=== PATIENT | male | born 1965 | race Hispanic/Latino ===

== ENCOUNTER 2018-12-18 01:57 | Observation (INO) | payer OTHER ==
--- NOTE | 2018-12-18 02:18 | ED PDOC ---
Arrival/HPI - General Chief Complaint: Syncope Time Seen by Provider: 12/18/18 02:08 Historian: Patient, EMS - History of Present Illness Narrative History of Present Illness (Text): 12/18/18 02:13 Tavo Stewart is a 53 year old male, with no significant past medical history, who presents to the ED brought in by EMS status post syncopal episode prior to arrival. Patient states he was sitting at a bar this evening when he lost consciousness. Patient states he is unable to recall the incident and only remembers waking up. Patient states he was drinking alcohol prior to the episode. Patient denies any fever, chills, chest pain, shortness of breath, nausea, vomiting, diarrhea, urinary symptoms, back pain, neck pain, headache, dizziness, or any other complaints. Time/Duration: Prior to Arrival Symptom Onset: Sudden Symptom Course: Unchanged Activities at Onset: Light Past Medical History - Provider Review Nursing Documentation Reviewed: Yes - Infectious Disease Hx of Infectious Diseases: None - Cardiac Hx Cardiac Disorders: No - Pulmonary Hx Respiratory Disorders: No - Neurological Hx Neurological Disorder: No - HEENT Hx HEENT Disorder: No - Renal Hx Renal Disorder: No - Endocrine/Metabolic Hx Endocrine Disorders: No - Hematological/Oncological Hx Blood Disorders: No - Integumentary Hx Dermatological Disorder: No - Musculoskeletal/Rheumatological Hx Musculoskeletal Disorders: No - Gastrointestinal Hx Gastrointestinal Disorders: No - Genitourinary/Gynecological Hx Genitourinary Disorders: No - Psychiatric Hx Psychophysiologic Disorder: No Hx Substance Use: No - Anesthesia Hx Anesthesia: No Family/Social History - Physician Review Nursing Documentation Reviewed: Yes Family/Social History: No Known Family HX Smoking Status: Never Smoked Hx Alcohol Use: Yes Frequency of alcohol use: Socially Hx Substance Use: No Allergies/Home Meds Allergies/Adverse Reactions: Allergies No Known Allergies Allergy (Verified 12/18/18 02:03) Home Medications: Home Meds Medication Instructions Recorded Confirmed No Known Home Med 12/18/18 12/18/18 Review of Systems - Physician Review All systems were reviewed & negative as marked: Yes - Review of Systems Constitutional: Normal. absent: Fevers Eyes: Normal ENT: Normal Respiratory: Normal. absent: SOB, Cough Cardiovascular: Syncope. absent: Chest Pain Gastrointestinal: Normal. absent: Abdominal Pain, Diarrhea, Nausea, Vomiting Genitourinary Male: Normal. absent: Dysuria, Frequency, Hematuria, Urinary Output Changes Musculoskeletal: Normal. absent: Back Pain, Neck Pain Skin: Normal. absent: Rash Neurological: Normal. absent: Headache, Dizziness Endocrine: Normal Hemo/Lymphatic: Normal Psychiatric: Normal Physical Exam Vital Signs Reviewed: Yes Vital Signs Temp Pulse Resp BP Pulse Ox 12/18/18 02:03 98.2 F 76 18 144/92 H 94 L Temperature: Afebrile Blood Pressure: Normal Pulse: Regular Respiratory Rate: Normal Appearance: Positive for: Well-Appearing, Non-Toxic, Comfortable Pain Distress: None Mental Status: Positive for: Alert and Oriented X 3 Finger Stick Blood Glucose: 124 - Systems Exam Head: Present: Atraumatic, Normocephalic Pupils: Present: PERRL Extroacular Muscles: Present: EOMI Conjunctiva: Present: Normal Ears: Present: NORMAL TM Mouth: Present: Moist Mucous Membranes Pharnyx: Present: Normal Neck: Present: Normal Range of Motion. No: Meningeal Signs, MIDLINE TENDERNESS, Paraspinal Tenderness Respiratory/Chest: Present: Clear to Auscultation, Good Air Exchange. No: Respiratory Distress, Accessory Muscle Use Cardiovascular: Present: Regular Rate and Rhythm, Normal S1, S2. No: Murmurs Abdomen: No: Tenderness, Distention, Peritoneal Signs Back: Present: Normal Inspection Upper Extremity: Present: Normal Inspection. No: Cyanosis, Edema Lower Extremity: Present: Normal Inspection. No: Edema Neurological: Present: GCS=15, CN II-XII Intact, Speech Normal, Motor Func Grossly Intact, Normal Sensory Function, Normal Cerebellar Funct Skin: Present: Warm, Dry, Normal Color. No: Rashes Psychiatric: Present: Alert, Oriented x 3, Normal Insight, Normal Concentration Medical Decision Making ED Course and Treatment: 12/18/18 02:13 Impression: 53 year old male presents status post syncopal episode. Plan: -- CT Head w/o contrast -- EKG -- Chest X-ray -- Labs, cardiac enzymes, alcohol level -- Reassess and disposition Progress Notes: Reviewed EKG, NSR at [address]-segment elevations or depressions, no T-wave inversions, normal intervals. 12/18/18 03:23 Reviewed radiology, Chest X-ray shows no acute processes. CT Head: Findings: The ventricles and sulci are symmetric bilaterally. There is no evidence of acute hemorrhage or infarct. There is no midline shift, mass effect, or extra-axial fluid collection. The osseous structures are unremarkable. The visualized paranasal sinuses and mastoid air cells are clear. Impression: Negative study. Electronically signed on Dec 18, 2018 3:22:27 AM EDT by: Hector Brambila M.D., M.B.A., Certified By [employer] Trained MRI and CT Specialist 12/18/18 03:26 Case discussed with medical technologist hematology manager aviation, who is aware and agrees with plan. 12/18/18 03:[address] Cruz, who is aware and agrees with plan. Accepts pt in to hospitalist service. Pt will go to Telemetry observation for syncope. - EKG Interpretation Interpreted by ED Physician: Yes Type: 12 lead EKG - Scribe Statement The provider has reviewed the documentation as recorded by the Roniibluis manuel Garibay Provider Scribe Attestation: All medical record entries made by the Scribe were at my direction and personally dictated by me. I have reviewed the chart and agree that the record accurately reflects my personal performance of the history, physical exam, medical decision making, and the department course for this patient. I have also personally directed, reviewed, and agree with the discharge instructions and disposition. Disposition/Present on Arrival - Present on Arrival Any Indicators Present on Arrival: No History of DVT/PE: No History of Uncontrolled Diabetes: No Urinary Catheter: No History of Decub. Ulcer: No History Surgical Site Infection Following: None - Disposition Have Diagnosis and Disposition been Completed?: Yes Diagnosis: Syncope Disposition: HOSPITALIZED Disposition Time: 03:37 Patient Plan: Observation Patient Problems: Current Active Problems Problem Status Onset Syncope Acute Condition: STABLE
[2018-12-18 02:25] LABS: HEMOGLOBIN 13.9 g/dL (14.0-18.0); MEAN CORPUSCULAR HEMOGLOBIN 29.7 pg (25.0-35.0); MEAN PLATELET VOLUME 8.9 fl (7.0-11.0); RBC 4.68 10^6/uL (3.5-6.1); RED CELL DISTRIBUTION WIDTH 13.5 % (11.5-14.5); WHITE BLOOD COUNT 8.8 10^3/uL (4.5-11.0)
[2018-12-18 02:33] LABS: INR 1.02; PARTIAL THROMBOPLASTIN TIME 27.7 Seconds (26.9-38.3); PROTHROMBIN TIME 11.3 SECONDS (9.4-12.5)
[2018-12-18 02:44] LABS: ALB/GLOB RATIO 1.3 (1.1-1.8); ALBUMIN 4.5 g/dL (3.0-4.8); ALT/SGPT 75 U/L (7-56); AST/SGOT 54 U/L (17-59); BLOOD UREA NITROGEN 14 mg/dL (7-21); CALCIUM 9.4 mg/dL (8.4-10.5); GFR NON-AFRICAN AMERICAN > 60
[2018-12-18 02:55] LABS: TROPONIN I < 0.01 ng/mL
--- NOTE | 2018-12-18 04:06 | CP.PCM.HP ---
<Bud Haines - Last Filed: 12/18/18 03:43> History of Present Illness - History of Present Illness History of Present Illness: PGY1 Medicine History and Physical Exam Note for Dr. Cruz This is a 53-year-old M with no significant PMH who presents to the ED brought in by EMS status post syncopal episode prior to arrival. Patient states he was sitting at a bar and after having 3 beers, he lost consciousness. Patient states he is unable to recall the incident and only remembers waking up. Patient denies any symptoms prior to incident. Patient otherwise denies any headache, head trauma, fever, chills, nause, vomiting, chest pain, shortness of breath, diarrhe a, dysuria, back pain, and/or weakness in extremities. Of note, CODE STROKE was called in the ED mid-way during evaluation of the Patient, as he complained of right-sided facial, hand, and medial thigh numbness later during the physical examination portion of the encounter. PMH: Patient denies PSH: Patient denies Social Hx: ETOH socially (was drinking 3 beers tonight prior to arrival); denies tobacco, denies recreational drugs Family Hx: Patient denies Meds: Patient denies Allergies: NKDA PMD: Anjelica Mcpherson Present on Admission - Present on Admission Any Indicators Present on Admission: No History of DVT/PE: No History of Uncontrolled Diabetes: No Urinary Catheter: No Decubitus Ulcer Present: No Review of Systems - Review of Systems All systems: reviewed and no additional remarkable complaints except (as stated in HPI) Past Patient History - Infectious Disease Hx of Infectious Diseases: None - Past Social History Smoking Status: Never Smoked - CARDIAC Hx Cardiac Disorders: No - PULMONARY Hx Respiratory Disorders: No - NEUROLOGICAL Hx Neurological Disorder: No - HEENT Hx HEENT Problems: No - RENAL Hx Chronic Kidney Disease: No - ENDOCRINE/METABOLIC Hx Endocrine Disorders: No - HEMATOLOGICAL/ONCOLOGICAL Hx Blood Disorders: No - INTEGUMENTARY Hx Dermatological Problems: No - MUSCULOSKELETAL/RHEUMATOLOGICAL Hx Musculoskeletal Disorders: No - GASTROINTESTINAL Hx Gastrointestinal Disorders: No - GENITOURINARY/GYNECOLOGICAL Hx Genitourinary Disorders: No - PSYCHIATRIC Hx Psychophysiologic Disorder: No Hx Substance Use: No - SURGICAL HISTORY Hx Surgeries: No - ANESTHESIA Hx Anesthesia: No Meds Allergies/Adverse Reactions: Allergies Allergy/AdvReac Type Severity Reaction Status Date / Time No Known Allergies Allergy Verified 12/18/18 02:03 Physical Exam - Constitutional Appears: Non-toxic, No Acute Distress - Head Exam Head Exam: ATRAUMATIC, NORMAL INSPECTION, NORMOCEPHALIC - Eye Exam Eye Exam: EOMI, Normal appearance, PERRL Pupil Exam: NORMAL ACCOMODATION - ENT Exam ENT Exam: Mucous Membranes Moist, Normal Exam - Neck Exam Neck exam: Positive for: Normal Inspection - Respiratory Exam Respiratory Exam: Clear to Auscultation Bilateral, NORMAL BREATHING PATTERN. absent: Respiratory Distress - Cardiovascular Exam Cardiovascular Exam: REGULAR RHYTHM, +S1, +S2 - GI/Abdominal Exam GI & Abdominal Exam: Normal Bowel Sounds, Soft. absent: Tenderness - Extremities Exam Extremities exam: Positive for: full ROM, normal capillary refill, normal inspection, pedal pulses present. Negative for: joint swelling, tenderness - Neurological Exam Neurological exam: Alert, CN II-XII Intact, Oriented x3 Additional comments: no pronator drift cerebellar function in tact bilaterally CN II-XII in tact Gross sensation decreased in R side face, arm, and medial thigh no LE drift bilaterally - Psychiatric Exam Psychiatric exam: Normal Affect, Normal Mood - Skin Skin Exam: Dry, Intact, Normal Color, Warm Results - Vital Signs Recent Vital Signs: Last Vital Signs Temp 98.2 F 12/18/18 02:03 Pulse 76 12/18/18 02:03 Resp 18 12/18/18 02:03 BP 144/92 H 12/18/18 02:03 Pulse Ox 94 L 12/18/18 02:03 - Labs Result Diagrams: 12/18/18 02:12 12/18/18 02:12 Labs: Laboratory Results - last 24 hr 12/18/18 12/18/18 12/18/18 02:12 02:12 02:12 WBC 8.8 RBC 4.68 Hgb 13.9 L Hct 42.1 MCV 90.0 MCH 29.7 MCHC 33.0 RDW 13.5 Plt Count 325 MPV 8.9 PT 11.3 INR 1.02 APTT 27.7 Sodium 141 Potassium 3.9 Chloride 106 Carbon Dioxide 26 Anion Gap 14 BUN 14 Creatinine 0.9 Est GFR ( Amer) > 60 Est GFR (Non-Af Amer) > 60 Random Glucose 125 H Calcium 9.4 Total Bilirubin 0.3 AST 54 ALT 75 H Alkaline Phosphatase 61 Lactate Dehydrogenase 497 Total Creatine Kinase 154 Troponin I < 0.01 Total Protein 8.0 Albumin 4.5 Globulin 3.5 Albumin/Globulin Ratio 1.3 Alcohol, Quantitative 12/18/18 02:12 WBC RBC Hgb Hct MCV MCH MCHC RDW Plt Count MPV PT INR APTT Sodium Potassium Chloride Carbon Dioxide Anion Gap BUN Creatinine Est GFR ( Amer) Est GFR (Non-Af Amer) Random Glucose Calcium Total Bilirubin AST ALT Alkaline Phosphatase Lactate Dehydrogenase Total Creatine Kinase Troponin I Total Protein Albumin Globulin Albumin/Globulin Ratio Alcohol, Quantitative 36 H Assessment & Plan - Assessment and Plan (Free Text) Assessment: Right Facial, R Upper Extremity, and R Thigh numbness - CODE STROKE called in ED; NIHSS score 1 at baseline - Neurology consulted; Dr. Rolon - CT head without contrast per prelim report: no evidence of acute hemorrhage or infarct - F/U ECHO - F/U RPR, TSH, CMP, Mg, Phos, Vitamin B12, Folate, Vitamin E levels - F/U UDS - F/U serial troponin - Neuro checks Q4H - ASA 325mg PO administered in ED - ASA 81mg PO daily - Lipitor 40mg administered in ED - Folic acid, Vitamin B12, and Multivitamin - Fall risk precautions - Seizure precautions - PT/OT eval and treat Pre-Syncope - Cardiology consulted - Dr. Howard recommendations appreciated - CT head without contrast: per prelim report: no evidence of acute hemorrhage or infarct - EKG reviewed: NSR @79bpm; no ST elevation; no T-wave inversions - CXR reviewed: no acute disease processes - F/U ECHO - Troponin negative x1 - F/U Serial troponin - F/U RPR, TSH, CMP, Mg, Phos, Vitamin B12, Folate, Vitamin E levels - Continue ASA 81mg PO daily - Continue home Continue lipitor 40 mg PO daily - Monitor orthostatic vitals - Low sodium diet - Monitor in tele ETOH Intoxication - High ETOH levels - Pending UDS - CIWA - Ativan 1mg IVP Q6H PRN for withdrawal - Currently, no signs of withdrawal - Monitor Hyperglycemia - Accu checks ACHS - ISS - low - Hypoglycemia protocol - HHD Prophylaxis - GI: None indicated at this time - DVT: SCDs Discussed with Dr. Anthony Haines PGY1 NIHSS Scale ([place]) Time Performed: 04:01 - How Severe is the Stoke Baseline Level of Consciousness: 0=Alert LOC to Questions: 0=Both comments correct LOC to commands: 0=Obeys both correctly Best Gaze: 0=Normal Visual: 0=No visual loss Facial: 0=Normal Motor Arm - Left: 0=No drift Motor Arm - Right: 0=No drift Motor Leg - Left: 0=No drift Motor Leg - Right: 0=No drift Limb Ataxia: 0=Absent Sensory: 1=Mild to moderate loss Best Language: 0=No aphasia Dysarthia: 0=Normal articulation Extinction & Inattention (Neglect): 0=Normal, no object Score: 1 Risk Level: Minor Stroke Risk <Leslye Cruz - Last Filed: 12/18/18 06:13> Results - Vital Signs Recent Vital Signs: Last Vital Signs Temp 98.2 F 12/18/18 04:57 Pulse 77 12/18/18 04:57 Resp 18 12/18/18 05:37 BP 138/89 12/18/18 04:57 Pulse Ox 98 12/18/18 04:57 - Labs Result Diagrams: 12/18/18 04:45 12/18/18 04:45 Labs: Laboratory Results - last 24 hr 12/18/18 12/18/18 12/18/18 02:12 02:12 02:12 WBC 8.8 RBC 4.68 Hgb 13.9 L Hct 42.1 MCV 90.0 MCH 29.7 MCHC 33.0 RDW 13.5 Plt Count 325 MPV 8.9 Neut % (Auto) Lymph % (Auto) [place] % (Auto) Eos % (Auto) Baso % (Auto) Lymph # (Auto) [place] # (Auto) Eos # (Auto) Baso # (Auto) Absolute Neuts (auto) PT 11.3 INR 1.02 APTT 27.7 Sodium 141 Potassium 3.9 Chloride 106 Carbon Dioxide 26 Anion Gap 14 BUN 14 Creatinine 0.9 Est GFR ( Amer) > 60 Est GFR (Non-Af Amer) > 60 Random Glucose 125 H Calcium 9.4 Phosphorus Magnesium Total Bilirubin 0.3 AST 54 ALT 75 H Alkaline Phosphatase 61 Lactate Dehydrogenase 497 Total Creatine Kinase 154 Troponin I < 0.01 Total Protein 8.0 Albumin 4.5 Globulin 3.5 Albumin/Globulin Ratio 1.3 Triglycerides Cholesterol LDL Cholesterol Direct HDL Cholesterol Free T4 TSH 3rd Generation Urine Opiates Screen Urine Methadone Screen Ur Barbiturates Screen Ur Phencyclidine Scrn Ur Amphetamines Screen U Benzodiazepines Scrn U Oth Cocaine Metabols U Cannabinoids Screen Alcohol, Quantitative 12/18/18 12/18/18 12/18/18 02:12 04:45 04:45 WBC 9.3 RBC 4.66 Hgb 13.8 L Hct 42.2 MCV 90.6 MCH 29.6 MCHC 32.7 RDW 13.5 Plt Count 323 MPV 9.2 Neut % (Auto) 68.7 H Lymph % (Auto) 21.2 L [place] % (Auto) 8.0 H Eos % (Auto) 1.8 Baso % (Auto) 0.3 Lymph # (Auto) 2.0 [place] # (Auto) 0.8 H Eos # (Auto) 0.2 Baso # (Auto) 0.03 Absolute Neuts (auto) 6.41 PT INR APTT Sodium Potassium Chloride Carbon Dioxide Anion Gap BUN Creatinine Est GFR ( Amer) Est GFR (Non-Af Amer) Random Glucose Calcium Phosphorus Magnesium Total Bilirubin AST ALT Alkaline Phosphatase Lactate Dehydrogenase Total Creatine Kinase Troponin I Total Protein Albumin Globulin Albumin/Globulin Ratio Triglycerides Cholesterol LDL Cholesterol Direct HDL Cholesterol Free T4 TSH 3rd Generation Urine Opiates Screen Negative Urine Methadone Screen Negative Ur Barbiturates Screen Negative Ur Phencyclidine Scrn Positive H Ur Amphetamines Screen Negative U Benzodiazepines Scrn Negative U Oth Cocaine Metabols Positive H U Cannabinoids Screen Negative Alcohol, Quantitative 36 H 12/18/18 12/18/18 04:45 04:45 WBC RBC Hgb Hct MCV MCH MCHC RDW Plt Count MPV Neut % (Auto) Lymph % (Auto) [place] % (Auto) Eos % (Auto) Baso % (Auto) Lymph # (Auto) [place] # (Auto) Eos # (Auto) Baso # (Auto) Absolute Neuts (auto) PT INR APTT Sodium 142 Potassium 4.7 Chloride 103 Carbon Dioxide 30 Anion Gap 14 BUN 13 Creatinine 0.9 Est GFR ( Amer) > 60 Est GFR (Non-Af Amer) > 60 Random Glucose 109 Calcium 9.4 Phosphorus 2.7 Magnesium 2.3 H Total Bilirubin 0.3 AST 51 ALT 75 H Alkaline Phosphatase 63 Lactate Dehydrogenase Total Creatine Kinase Troponin I < 0.01 Total Protein 8.0 Albumin 4.5 Globulin 3.5 Albumin/Globulin Ratio 1.3 Triglycerides 216 H Cholesterol 251 H LDL Cholesterol Direct 144 H HDL Cholesterol 49 Free T4 0.79 TSH 3rd Generation 0.71 Urine Opiates Screen Urine Methadone Screen Ur Barbiturates Screen Ur Phencyclidine Scrn Ur Amphetamines Screen U Benzodiazepines Scrn U Oth Cocaine Metabols U Cannabinoids Screen Alcohol, Quantitative Attending/Attestation - Attestation I have personally seen and examined this patient.: Yes I have fully participated in the care of the patient.: Yes I have reviewed all pertinent clinical information: Yes Notes (Text): 12/18/18 06:13 Seen and examined. discussed with resident. A&P as above. Add MRI brain.
[2018-12-18] MEDS ORDERED: Aspirin 325 mg EC Tablets PO STA (04:22)
[2018-12-18] MEDS ORDERED: Folic Acid 1 MG, Thiamine 100 MG, Multivitamin (MVI) 10 ML in Dextrose 5% In Water 1,00... IV SCH (04:30)
[2018-12-18] MEDS ORDERED: Folic Acid 1 MG, Thiamine 100 MG, Multivitamin (MVI) 10 ML in Dextrose 5% In Water 1,00... IV ONE (04:43)
[2018-12-18 05:24] LABS: BLOOD UREA NITROGEN 13 mg/dL (7-21); CALCIUM 9.4 mg/dL (8.4-10.5); GFR NON-AFRICAN AMERICAN > 60
[2018-12-18 05:25] LABS: ALB/GLOB RATIO 1.3 (1.1-1.8); ALBUMIN 4.5 g/dL (3.0-4.8); ALT/SGPT 75 U/L (7-56); AST/SGOT 51 U/L (17-59); HDL CHOLESTEROL 49 mg/dL (29-60); LDL CHOLESTEROL 144 mg/dL (0-129)
[2018-12-18 05:28] LABS: BARBITURATES, UR NEGATIVE (NEGATIVE); BENZODIAZEPINES, UR NEGATIVE (NEGATIVE)
[2018-12-18 05:29] LABS: OPIATES, UR NEGATIVE (NEGATIVE); PHENCYCLIDINE, UR POSITIVE (NEGATIVE)
[2018-12-18 05:34] LABS: BASO # 0.03 K/mm3 (0.0-2.0); BASO % 0.3 % (0.0-3.0); EOS # 0.2 (0.0-0.7); EOS % 1.8 % (1.5-5.0); HEMOGLOBIN 13.8 g/dL (14.0-18.0); LYMPH % 21.2 % (22.0-35.0); MEAN CELL VOLUME 90.6 fl (80.0-105.0); MEAN CORPUSCULAR HEMOGLOBIN 29.6 pg (25.0-35.0); MEAN CORPUSCULAR HGB CONC 32.7 g/dl (31.0-37.0); MEAN PLATELET VOLUME 9.2 fl (7.0-11.0); MONO # 0.8 (0.1-0.6); RBC 4.66 10^6/uL (3.5-6.1); RED CELL DISTRIBUTION WIDTH 13.5 % (11.5-14.5); WHITE BLOOD COUNT 9.3 10^3/uL (4.5-11.0)
[2018-12-18 05:45] LABS: FREE T4 0.79 ng/dL (0.78-2.19)
[2018-12-18 06:00] LABS: TROPONIN I < 0.01 ng/mL
[2018-12-18] MEDS: Insulin Lispro (humaLOG) LOW Coverage SC SCH ×3 (07:58→16:29)
--- NOTE | 2018-12-18 08:25 | CT ---
Date of service: 12/18/2018 PROCEDURE: CT HEAD WITHOUT CONTRAST. HISTORY: syncope COMPARISON: None available. TECHNIQUE: Axial computed tomography images were obtained through the head/brain without intravenous contrast. Radiation dose: Total exam DLP = 807.7 mGy-cm. This CT exam was performed using one or more of the following dose reduction techniques: Automated exposure control, adjustment of the mA and/or kV according to patient size, and/or use of iterative reconstruction technique. FINDINGS: HEMORRHAGE: No intracranial hemorrhage. BRAIN: No mass effect or edema. No atrophy or chronic microvascular ischemic changes. VENTRICLES: Unremarkable. No hydrocephalus. CALVARIUM: Unremarkable. PARANASAL SINUSES: There is partial opacification of the ethmoid and sphenoid sinuses MASTOID AIR CELLS: Unremarkable as visualized. No inflammatory changes. OTHER FINDINGS: The report concurs with the preliminary [facility] report IMPRESSION: No acute intracranial findings
--- NOTE | 2018-12-18 09:09 | CARD ---
APPROVED REPORT Date of service: 12/18/2018 EKG Measurement Heart [id number] <Conclusion> Normal sinus rhythm Normal ECG
--- NOTE | 2018-12-18 10:36 | RAD ---
Date of service: 12/18/2018 PROCEDURE: CHEST RADIOGRAPH, 1 VIEW HISTORY: syncope COMPARISON: None available. FINDINGS: LUNGS: Clear. PLEURA: No pneumothorax or pleural fluid seen. CARDIOVASCULAR: No aortic atherosclerotic calcification present. Normal. OSSEOUS STRUCTURES: No significant abnormalities. VISUALIZED UPPER ABDOMEN: Normal. OTHER FINDINGS: None. IMPRESSION: No active disease.
--- NOTE | 2018-12-18 10:43 | MRI ---
Date of service: 12/18/2018 PROCEDURE: MRI BRAIN WITHOUT CONTRAST HISTORY: right sided paresthesia COMPARISON: None available. TECHNIQUE: Multiplanar, multisequence MR images of the brain were obtained without intravenous contrast enhancement. FINDINGS: HEMORRHAGE: None DWI: No evidence of an acute or early subacute infarction. BRAIN PARENCHYMA: No mass effect or edema. Minimal microvascular changes. VENTRICLES: Unremarkable. No hydrocephalus. CRANIUM: Unremarkable. ORBITS: Grossly unremarkable. PARANASAL SINUSES/MASTOIDS: There is partial opacification of the sphenoid sinus and mucosal thickening in the ethmoid sinuses. VASCULAR SYSTEM: Skull base flow voids intact. OTHER FINDINGS: None. IMPRESSION: No acute intracranial findings.
[2018-12-18 12:07] LABS: FOLATE 18.9 ng/mL
[2018-12-18 16:20] VITALS: BP 138/85; RESP 20; TEMP 97.6; O2SAT 97
--- NOTE | 2018-12-18 16:34 | CP.PCM.CON ---
History of Present Illness - History of Present Illness History of Present Illness: Neurology Consultation Note: Consult requested by Dr. Klein Mr. Stewart is a 53-year-old man with no significant past medical history who was at the bar, had 3 beers, lost consciousness, brought to the ED, complained of some right side numbness, CODE STROKE was called, MRI brain is negative for any acute findings. The patient denies urinary/bowel incontinence, tongue biting or any abnormal movements. He is not quite sure how he lost consciousness and does not recall what occurred just prior. Review of Systems - Constitutional Constitutional: As Per HPI - EENT Eyes: absent: As Per HPI, Blind Spots, Blurred Vision, Change in Vision, Decreased Night Vision, Diplopia, Discharge, Dry Eye, Exophthalmos, Floaters, Irritation, Itchy Eyes, Loss of Peripheral Vision, Pain, Photophobia, Requires Corrective Lenses, Sees Flashes, Spots in Vision, Tunnel Vision, Other Visual Disturbances, Loss of Vision, Other Ears: absent: As Per HPI, Decreased Hearing, Ear Discharge, Ear Pain, Tinnitus, Abnormal Hearing, Disequilibrium, Dizziness, Other Nose/Mouth/Throat: absent: As Per HPI, Epistaxis, Nasal Congestion, Nasal Discharge, Nasal Obstruction, Nasal Trauma, Nose Pain, Post Nasal Drip, Sinus Pain, Sinus Pressure, Bleeding Gums, Change in Voice, Dental Pain, Dry Mouth, D ysphagia, Halitosis, Hoarsness, Lip Swelling, Mouth Lesions, Mouth Pain, Odynophagia, Sore Throat, Throat Swelling, Tongue Swelling, Facial Pain, Neck Pain, Neck Mass, Other - Cardiovascular Cardiovascular: absent: As Per HPI, Acrocyanosis, Chest Pain, Chest Pain at Rest, Chest Pain with Activity, Claudication, Diaphoresis, Dyspnea, Dyspnea on Exertion, Edema, Irregular Heart Rhythm, Pain Radiating to Arm/Neck/Jaw, Leg Edema, Leg Ulcers, Lightheadedness, Orthopnea, Palpitations, Paroxysmal Nocturnal Dyspnea, Pedal Edema, Radiating Pain, Rapid Heart Rate, Slow Heart Rate, Syncope, Other - Respiratory Respiratory: absent: As Per HPI, Cough, Dyspnea, Hemoptysis, Dyspnea on Exertion, Wheezing, Snoring, Stridor, Pain on Inspiration, Chest Congestion, Excessive Mucous Production, Change in Mucous Color, Pain with Coughing, Other - Gastrointestinal Gastrointestinal: absent: As Per HPI, Abdominal Pain, Belching, Bloating, Change in Bowel Habits, Change in Stool Character, Coffee Ground Emesis, Constipation, Cramping, Diarrhea, Dyspepsia, Dysphagia, Early Satiety, Excessive Flatus, Fecal Incontinence, Heartburn, Hematemesis, Hematochezia, Loose Stools, Melena, Nausea, Odynophagia, Temesmus, Vomiting, Other - Musculoskeletal Musculoskeletal: absent: As Per HPI, Abnormal Gait, Arthralgias, Atrophy, Back Pain, Deformity, Joint Swelling, Limited Range of Motion, Loss of Height, Muscle Cramps, Muscle Weakness, Myalgias, Neck Pain, Numbness, Radiating Pain into Limb, Stiffness, Tingling, Other - Neurological Neurological: As Per HPI - Psychiatric Psychiatric: absent: As Per HPI, Abnormal Sleep Pattern, Anhedonia, Anxiety, Auditory Hallucinations, Behavioral Changes, Change in Appetite, Change in Libido, Confusion, Depression, Difficulty Concentrating, Hallucinations, Homicidal Ideation, Hopelessness, Irritability, Memory Loss, Mood Swings, Panic Attacks, Paranoia, Suicidal Ideation, Visual Hallucinations, Tactile Hallucinations, Other - Endocrine Endocrine: absent: As Per HPI, Change in Body Appearance, Change in Libido, Cold Intolorance, Deepening of Voice, Excessive Sweating, Fatigue, Flushing, Heat Int olorance, Increase in Ring/Shoe/Hat Size, Palpitations, Polydipsia, Polyphagia, Polyuria, Other - Hematologic/Lymphatic Hematologic: absent: As Per HPI, Easy Bleeding, Easy Bruising, Lymphadenopathy, Other Past Patient History - Infectious Disease Hx of Infectious Diseases: None - Past Social History Smoking Status: Never Smoked - CARDIAC Hx Cardiac Disorders: No - PULMONARY Hx Respiratory Disorders: No - NEUROLOGICAL Hx Neurological Disorder: No - HEENT Hx HEENT Problems: No - RENAL Hx Chronic Kidney Disease: No - ENDOCRINE/METABOLIC Hx Endocrine Disorders: No - HEMATOLOGICAL/ONCOLOGICAL Hx Blood Disorders: No - INTEGUMENTARY Hx Dermatological Problems: No - MUSCULOSKELETAL/RHEUMATOLOGICAL Hx Musculoskeletal Disorders: No Hx Falls: Yes - GASTROINTESTINAL Hx Gastrointestinal Disorders: No - GENITOURINARY/GYNECOLOGICAL Hx Genitourinary Disorders: No - PSYCHIATRIC Hx Psychophysiologic Disorder: No Hx Substance Use: No - SURGICAL HISTORY Hx Surgeries: No - ANESTHESIA Hx Anesthesia: No Meds Allergies/Adverse Reactions: Allergies Allergy/AdvReac Type Severity Reaction Status Date / Time No Known Allergies Allergy Verified 04/21/19 02:03 - Medications Medications: Current Medications Aspirin (Aspirin Chewable) 81 mg PO DAILY [facility] Atorvastatin Calcium (Lipitor) 40 mg PO DIN [facility] Cyanocobalamin (Vitamin B12 1000 Mcg Tab) 1,000 mcg PO DAILY [facility] Last Admin: 12/18/18 09:06 Dose: 1,000 mcg Folic Acid (Folic Acid) 1 mg PO DAILY [facility] Insulin Human Lispro (Humalog Low) 0 units SC ACHS [facility]; Protocol Last Admin: 12/18/18 16:29 Dose: Not Given Lorazepam (Ativan) 1 mg IVP Q6H PRN; Protocol PRN Reason: Symptoms of alcohol withdrawl Multivitamins (Thera Tab) 1 tab PO DAILY [facility] Physical Exam - Constitutional Appears: Well - Head Exam Head Exam: ATRAUMATIC, NORMAL INSPECTION, NORMOCEPHALIC - Eye Exam Eye Exam: EOMI, Normal appearance, PERRL Pupil Exam: NORMAL ACCOMODATION, PERRL - ENT Exam ENT Exam: Mucous Membranes Moist, Normal Exam - Neck Exam Neck exam: Positive for: Normal Inspection - Respiratory Exam Respiratory Exam: Clear to Auscultation Bilateral, NORMAL BREATHING PATTERN - Cardiovascular Exam Cardiovascular Exam: REGULAR RHYTHM, +S1, +S2 - GI/Abdominal Exam GI & Abdominal Exam: Normal Bowel Sounds, Soft. absent: Tenderness - Extremities Exam Extremities exam: Positive for: normal inspection - Back Exam Back exam: NORMAL INSPECTION - Neurological Exam Neurological exam: Alert, CN II-XII Intact, Normal Gait, Oriented x3, Reflexes Normal - Psychiatric Exam Psychiatric exam: Normal Affect, Normal Mood - Skin Skin Exam: Dry, Intact, Normal Color, Warm Results - Vital Signs Recent Vital Signs: Last Vital Signs Temp 97.6 F 12/18/18 16:19 Pulse 83 12/18/18 16:19 Resp 20 12/18/18 16:19 BP 138/85 12/18/18 16:19 Pulse Ox 97 12/18/18 16:19 - Labs Result Diagrams: 12/18/18 04:45 12/18/18 04:45 Labs: Laboratory Results - last 24 hr 12/18/18 12/18/18 12/18/18 02:12 02:12 02:12 WBC 8.8 RBC 4.68 Hgb 13.9 L Hct 42.1 MCV 90.0 MCH 29.7 MCHC 33.0 RDW 13.5 Plt Count 325 MPV 8.9 Neut % (Auto) Lymph % (Auto) Webster % (Auto) Eos % (Auto) Baso % (Auto) Lymph # (Auto) Webster # (Auto) Eos # (Auto) Baso # (Auto) Absolute Neuts (auto) PT 11.3 INR 1.02 APTT 27.7 Sodium 141 Potassium 3.9 Chloride 106 Carbon Dioxide 26 Anion Gap 14 BUN 14 Creatinine 0.9 Est GFR ( Amer) > 60 Est GFR (Non-Af Amer) > 60 POC Glucose (mg/dL) Random Glucose 125 H Hemoglobin A1c Calcium 9.4 Phosphorus Magnesium Total Bilirubin 0.3 AST 54 ALT 75 H Alkaline Phosphatase 61 Lactate Dehydrogenase 497 Total Creatine Kinase 154 Troponin I < 0.01 Total Protein 8.0 Albumin 4.5 Globulin 3.5 Albumin/Globulin Ratio 1.3 Triglycerides Cholesterol LDL Cholesterol Direct HDL Cholesterol Vitamin B12 Folate Free T4 TSH 3rd Generation Urine Opiates Screen Urine Methadone Screen Ur Barbiturates Screen Ur Phencyclidine Scrn Ur Amphetamines Screen U Benzodiazepines Scrn U Oth Cocaine Metabols U Cannabinoids Screen Alcohol, Quantitative 12/18/18 12/18/18 12/18/18 02:12 04:45 04:45 WBC 9.3 RBC 4.66 Hgb 13.8 L Hct 42.2 MCV 90.6 MCH 29.6 MCHC 32.7 RDW 13.5 Plt Count 323 MPV 9.2 Neut % (Auto) 68.7 H Lymph % (Auto) 21.2 L Webster % (Auto) 8.0 H Eos % (Auto) 1.8 Baso % (Auto) 0.3 Lymph # (Auto) 2.0 Webster # (Auto) 0.8 H Eos # (Auto) 0.2 Baso # (Auto) 0.03 Absolute Neuts (auto) 6.41 PT INR APTT Sodium Potassium Chloride Carbon Dioxide Anion Gap BUN Creatinine Est GFR ( Amer) Est GFR (Non-Af Amer) POC Glucose (mg/dL) Random Glucose Hemoglobin A1c Calcium Phosphorus Magnesium Total Bilirubin AST ALT Alkaline Phosphatase Lactate Dehydrogenase Total Creatine Kinase Troponin I Total Protein Albumin Globulin Albumin/Globulin Ratio Triglycerides Cholesterol LDL Cholesterol Direct HDL Cholesterol Vitamin B12 Folate Free T4 TSH 3rd Generation Urine Opiates Screen Negative Urine Methadone Screen Negative Ur Barbiturates Screen Negative Ur Phencyclidine Scrn Positive H Ur Amphetamines Screen Negative U Benzodiazepines Scrn Negative U Oth Cocaine Metabols Positive H U Cannabinoids Screen Negative Alcohol, Quantitative 36 H 12/18/18 12/18/18 12/18/18 04:45 04:45 04:45 WBC RBC Hgb Hct MCV MCH MCHC RDW Plt Count MPV Neut % (Auto) Lymph % (Auto) Webster % (Auto) Eos % (Auto) Baso % (Auto) Lymph # (Auto) Webster # (Auto) Eos # (Auto) Baso # (Auto) Absolute Neuts (auto) PT INR APTT Sodium 142 Potassium 4.7 Chloride 103 Carbon Dioxide 30 Anion Gap 14 BUN 13 Creatinine 0.9 Est GFR ( Amer) > 60 Est GFR (Non-Af Amer) > 60 POC Glucose (mg/dL) Random Glucose 109 Hemoglobin A1c 5.6 Calcium 9.4 Phosphorus 2.7 Magnesium 2.3 H Total Bilirubin 0.3 AST 51 ALT 75 H Alkaline Phosphatase 63 Lactate Dehydrogenase Total Creatine Kinase Troponin I < 0.01 Total Protein 8.0 Albumin 4.5 Globulin 3.5 Albumin/Globulin Ratio 1.3 Triglycerides 216 H Cholesterol 251 H LDL Cholesterol Direct 144 H HDL Cholesterol 49 Vitamin B12 755 Folate 18.9 Free T4 0.79 TSH 3rd Generation 0.71 Urine Opiates Screen Urine Methadone Screen Ur Barbiturates Screen Ur Phencyclidine Scrn Ur Amphetamines Screen U Benzodiazepines Scrn U Oth Cocaine Metabols U Cannabinoids Screen Alcohol, Quantitative 12/18/18 12/18/18 12/18/18 07:09 10:00 11:13 WBC RBC Hgb Hct MCV MCH MCHC RDW Plt Count MPV Neut % (Auto) Lymph % (Auto) Webster % (Auto) Eos % (Auto) Baso % (Auto) Lymph # (Auto) Webster # (Auto) Eos # (Auto) Baso # (Auto) Absolute Neuts (auto) PT INR APTT Sodium Potassium Chloride Carbon Dioxide Anion Gap BUN Creatinine Est GFR ( Amer) Est GFR (Non-Af Amer) POC Glucose (mg/dL) 117 H 99 Random Glucose Hemoglobin A1c Calcium Phosphorus Magnesium Total Bilirubin AST ALT Alkaline Phosphatase Lactate Dehydrogenase Total Creatine Kinase Troponin I < 0.01 Total Protein Albumin Globulin Albumin/Globulin Ratio Triglycerides Cholesterol LDL Cholesterol Direct HDL Cholesterol Vitamin B12 Folate Free T4 TSH 3rd Generation Urine Opiates Screen Urine Methadone Screen Ur Barbiturates Screen Ur Phencyclidine Scrn Ur Amphetamines Screen U Benzodiazepines Scrn U Oth Cocaine Metabols U Cannabinoids Screen Alcohol, Quantitative 12/18/18 16:09 WBC RBC Hgb Hct MCV MCH MCHC RDW Plt Count MPV Neut % (Auto) Lymph % (Auto) Webster % (Auto) Eos % (Auto) Baso % (Auto) Lymph # (Auto) Webster # (Auto) Eos # (Auto) Baso # (Auto) Absolute Neuts (auto) PT INR APTT Sodium Potassium Chloride Carbon Dioxide Anion Gap BUN Creatinine Est GFR ( Amer) Est GFR (Non-Af Amer) POC Glucose (mg/dL) 110 Random Glucose Hemoglobin A1c Calcium Phosphorus Magnesium Total Bilirubin AST ALT Alkaline Phosphatase Lactate Dehydrogenase Total Creatine Kinase Troponin I Total Protein Albumin Globulin Albumin/Globulin Ratio Triglycerides Cholesterol LDL Cholesterol Direct HDL Cholesterol Vitamin B12 Folate Free T4 TSH 3rd Generation Urine Opiates Screen Urine Methadone Screen Ur Barbiturates Screen Ur Phencyclidine Scrn Ur Amphetamines Screen U Benzodiazepines Scrn U Oth Cocaine Metabols U Cannabinoids Screen Alcohol, Quantitative Assessment & Plan (1) Syncope Assessment and Plan: Likely neuro-cardiogenic or vaso-vagal syncope. No evidence of seizure. MRI is normal, the patient is back to baseline, no further inpatient recommendations from a neurological perspective. EEG can be done as an outpatient and the patient can follow up with outpatient neurology. Thank you. Status: Acute
[2018-12-18 18:26] VITALS: PULSE 70
--- NOTE | 2018-12-18 20:43 | CP.PCM.DIS ---
Provider - Provider Date of Admission: 12/18/18 03:37 Attending physician: Bonny Klein MD Primary care physician: Anjelica Fong MD Consults: 12/18/18 03:39 Physician Consult Routine Comment: Consulting Provider: El Howard Consulting Physician: El Howard Reason for Consult: near syncope 12/18/18 04:32 Neurology Consult Routine Comment: Consulting Provider: Chuy Rolon Consulting Physician: Chuy Rolon Reason for Consult: code stroke 12/18/18 07:56 Stroke Center Referral Routine Comment: Protocol Physician Instructions: Reason For Exam: Code Stroke Time Spent in preparation of Discharge (in minutes): 45 Diagnosis - Discharge Diagnosis (1) Neurocardiogenic pre-syncope Status: Resolved (2) Syncope Status: Resolved Hospital Course - Lab Results Lab Results: Most Recent Lab Values WBC 9.3 10^3/uL (4.5-11.0) 12/18/18 04:45 RBC 4.66 10^6/uL (3.5-6.1) 12/18/18 04:45 Hgb 13.8 g/dL (14.0-18.0) L 12/18/18 04:45 Hct 42.2 % (42.0-52.0) 12/18/18 04:45 MCV 90.6 fl (80.0-105.0) 12/18/18 04:45 MCH 29.6 pg (25.0-35.0) 12/18/18 04:45 MCHC 32.7 g/dl (31.0-37.0) 12/18/18 04:45 RDW 13.5 % (11.5-14.5) 12/18/18 04:45 Plt Count 323 10^3/uL (120.0-450.0) 12/18/18 04:45 MPV 9.2 fl (7.0-11.0) 12/18/18 04:45 Neut % (Auto) 68.7 % (50.0-68.0) H 12/18/18 04:45 Lymph % (Auto) 21.2 % (22.0-35.0) L 12/18/18 04:45 Young % (Auto) 8.0 % (1.0-6.0) H 12/18/18 04:45 Eos % (Auto) 1.8 % (1.5-5.0) 12/18/18 04:45 Baso % (Auto) 0.3 % (0.0-3.0) 12/18/18 04:45 Lymph # (Auto) 2.0 (1.2-3.4) 12/18/18 04:45 Young # (Auto) 0.8 (0.1-0.6) H 12/18/18 04:45 Eos # (Auto) 0.2 (0.0-0.7) 12/18/18 04:45 Baso # (Auto) 0.03 K/mm3 (0.0-2.0) 12/18/18 04:45 Absolute Neuts (auto) 6.41 (1.4-6.5) 12/18/18 04:45 PT 11.3 SECONDS (9.4-12.5) 12/18/18 02:12 INR 1.02 12/18/18 02:12 APTT 27.7 Seconds (26.9-38.3) 12/18/18 02:12 Sodium 142 mmol/L (132-148) 12/18/18 04:45 Potassium 4.7 mmol/L (3.6-5.0) 12/18/18 04:45 Chloride 103 mmol/L (98-107) 12/18/18 04:45 Carbon Dioxide 30 mmol/L (21-33) 12/18/18 04:45 Anion Gap 14 (10-20) 12/18/18 04:45 BUN 13 mg/dL (7-21) 12/18/18 04:45 Creatinine 0.9 mg/dl (0.8-1.5) 12/18/18 04:45 Est GFR ( Amer) > 60 12/18/18 04:45 Est GFR (Non-Af Amer) > 60 12/18/18 04:45 POC Glucose (mg/dL) 110 mg/dL (65-110) 12/18/18 16:09 Random Glucose 109 mg/dL (70-110) 12/18/18 04:45 Hemoglobin A1c 5.6 % (4.2-6.5) 12/18/18 04:45 Calcium 9.4 mg/dL (8.4-10.5) 12/18/18 04:45 Phosphorus 2.7 mg/dL (2.5-4.5) 12/18/18 04:45 Magnesium 2.3 mg/dL (1.7-2.2) H 12/18/18 04:45 Total Bilirubin 0.3 mg/dL (0.2-1.3) 12/18/18 04:45 AST 51 U/L (17-59) 12/18/18 04:45 ALT 75 U/L (7-56) H 12/18/18 04:45 Alkaline Phosphatase 63 U/L (38-126) 12/18/18 04:45 Lactate Dehydrogenase 497 U/L (333-699) 12/18/18 02:12 Total Creatine Kinase 154 U/L (35-230) 12/18/18 02:12 Troponin I < 0.01 ng/mL 12/18/18 10:00 Total Protein 8.0 g/dL (5.8-8.3) 12/18/18 04:45 Albumin 4.5 g/dL (3.0-4.8) 12/18/18 04:45 Globulin 3.5 gm/dL 12/18/18 04:45 Albumin/Globulin Ratio 1.3 (1.1-1.8) 12/18/18 04:45 Triglycerides 216 mg/dL (35-160) H 12/18/18 04:45 Cholesterol 251 mg/dL (130-200) H 12/18/18 04:45 LDL Cholesterol Direct 144 mg/dL (0-129) H 12/18/18 04:45 HDL Cholesterol 49 mg/dL (29-60) 12/18/18 04:45 Vitamin B12 755 pg/mL (239-931) 12/18/18 04:45 Folate 18.9 ng/mL 12/18/18 04:45 Free T4 0.79 ng/dL (0.78-2.19) 12/18/18 04:45 TSH 3rd Generation 0.71 mIU/mL (0.46-4.68) 12/18/18 04:45 Urine Opiates Screen Negative (NEGATIVE) 12/18/18 04:45 Urine Methadone Screen Negative (NEGATIVE) 12/18/18 04:45 Ur Barbiturates Screen Negative (NEGATIVE) 12/18/18 04:45 Ur Phencyclidine Scrn Positive (NEGATIVE) H 12/18/18 04:45 Ur Amphetamines Screen Negative (NEGATIVE) 12/18/18 04:45 U Benzodiazepines Scrn Negative (NEGATIVE) 12/18/18 04:45 U Oth Cocaine Metabols Positive (NEGATIVE) H 12/18/18 04:45 U Cannabinoids Screen Negative (NEGATIVE) 12/18/18 04:45 Alcohol, Quantitative 36 mg/dL (0-10) H 12/18/18 02:12 RPR Nonreactive (NONREACTIVE) 12/18/18 04:45 - Hospital Course Hospital Course: Upon Admission: 53-year-old M with no significant PMH who presents to the ED brought in by EMS status post syncopal episode prior to arrival. Patient states he was sitting at a bar and after having 3 beers, he lost consciousness. Patient states he is unable to recall the incident and only remembers waking up. Patient denies any symptoms prior to incident. Patient otherwise denies any headache, head trauma, fever, chills, nause, vomiting, chest pain, shortness of breath, diarrhea, dysuria, back pain, and/or weakness in extremities. Of note, CODE STROKE was called in the ED mid-way during evaluation of the Patient, as he complained of right-sided facial, hand, and medial thigh numbness later during the physical e xamination portion of the encounter. Hospital Course: CT Head: negative. Brain MRI: No acute abnormalities. CXR: No active disease. Urine was positive for PCP & cocaine. Pt was evaluated by neurology with attributed findings to neurocardiogenic syncope. Upon Discharge Pt is feeling better. His vital signs stable. Labs stable. His neurologic symp toms have resolved. He was educated on lifestyle modification, medication compliance and outpatient followup. Pt is to followup outpatient with neurology and cardiology. Discharge Exam - Head Exam Head Exam: ATRAUMATIC, NORMAL INSPECTION, NORMOCEPHALIC - Eye Exam Eye Exam: EOMI, Normal appearance - ENT Exam ENT Exam: Mucous Membranes Moist - Neck Exam Neck exam: Normal Inspection - Respiratory Exam Respiratory Exam: NORMAL BREATHING PATTERN, UNREMARKABLE - Cardiovascular Exam Cardiovascular Exam: REGULAR RHYTHM, +S1, +S2 - GI/Abdominal Exam GI & Abdominal Exam: Soft. absent: Tenderness - Extremities Exam Extremities exam: normal inspection - Back Exam Back exam: NORMAL INSPECTION - Neurological Exam Neurological exam: Alert, Oriented x3 Additional comments: no focal deficits - Psychiatric Exam Psychiatric exam: Normal Affect, Normal Mood - Skin Skin Exam: Dry, Intact, Warm Discharge Plan - Discharge Medications Prescriptions: Aspirin [Aspirin Chewable] 81 mg PO DAILY #14 chew Atorvastatin [Lipitor] 40 mg PO DIN #14 tab - Follow Up Plan Condition: STABLE Disposition: HOME/ ROUTINE Instructions: Stroke (DC), Syncope (Fainting) (DC), Alcohol Abuse and Alcoholism (DC), Vasovagal Response (DC) Additional Instructions: Please follow up with your primary care doctor within 3-5 days of discharge from the hospital Please follow up with your neurologist, Dr. Rolon, within 1 week of discharge from the hospital. Please discuss an EEG with your neurologist. Please follow up with your ship's officer, Dr. Howard, within 1 week of discharge from the hospital. Please discuss and echocardiogram with your ship's officer Please stop using illicit drugs Please attend local Alcoholic Anonymous meetings If your symptoms return or you experience new symptoms please return to the nearest emergency room Referrals: Anjelica Fong MD [Primary Care Provider] - Chuy Rolon MD [Staff Provider] - El Howard MD [Staff Provider] -
[2018-12-19 07:50] LABS: HEPATITIS B SURFACE AG Negative (NEGATIVE)
[2018-12-19 07:56] LABS: HEPATITIS A IGM NEGATIVE (NEGATIVE); HEPATITIS B CORE AB NEGATIVE (NEGATIVE)
[2018-12-19 08:08] LABS: HEPATITIS C ANTIBODY NEGATIVE (NEGATIVE)
[2018-12-19] MEDS ORDERED: Multivitamin Therapeutic Tab PO SCH (10:00)
== END 2018-12-18 19:01 | disposition home or self-care (01) ==
LOC: ED 01:57 → MERGE 03:37 → ERH 03:37 → 3RNO 04:50
PROVIDERS: ADMIT Internal Medicine; ATTEND Internal Medicine
DX: R55 Syncope and collapse (principal); F10.129 Alcohol abuse with intoxication, unspecified
CPT/HCPCS: 36415; 70450; 70551; 71045; 80053; 80061; 80074; 80320; 80324; 80345; 80346; 80349; 80353; 80358; 80361; 82550; 82607; 82746; 82948; 83036; 83615; 83735; 83992; 84100; 84439; 84443; 84446; 84484; 85025; 85027; 85610; 85730; 86592; 93005; 96365; 96366; 99285; G0378; J3411; J7070